=== PATIENT | male | born 2000 | race Caucasian/White ===

== ENCOUNTER 2023-09-06 16:07 | Emergency (ER) | payer OTHER ==
[~2023-09-06] VITALS: Ht 170.2 cm; Wt 66.0 kg
[2023-09-06 16:10] VITALS: BP 112/68; RESP 18; TEMP 98.2; O2SAT 98
[2023-09-06 16:11] VITALS: PULSE 80
[2023-09-06] MEDS: IBUPROFEN 600MG TABLET PO ONE (17:24)
== END 2023-09-06 19:54 | disposition home or self-care (01) ==
LOC: ER 16:07
DX: S20.212A Contusion of left front wall of thorax, initial encounter (principal); M54.9 Dorsalgia, unspecified; V98.8XXA Other specified transport accidents, initial encounter; Y93.89 Activity, other specified; Y92.89 Other specified places as the place of occurrence of the external cause; Y99.8 Other external cause status
CPT/HCPCS: 71101; 99283